=== PATIENT | female | born 1985 | race African-American/Black ===

== ENCOUNTER 2024-09-27 05:41 | Emergency (ER) | payer OTHER, SELFPAY ==
--- NOTE | ~2024-09-27 | XR_ITS ---
Exam: Abdomen 1V HISTORY: replaced, G TUBE REPLACEMENT COMPARISON: None. TECHNIQUE: Supine images of the lower chest and upper abdomen FINDINGS: Percutaneous enteric tube extends into the left upper quadrant. Oral contrast opacifies the gastric cardia. Significant contrast opacified fecal stasis within the rectum (likely from earlier examination) for w hich fecal impaction is suspected. Staple line visualized in the left of midline. Significant levoscoliotic curvature of the lower thoracic and lumbosacral spines. IMPRESSION: Fecal impaction. Oral contrast opacifies the gastric cardia, intraluminal on the submitted image. Reviewed, dictated and finalized at location A. IMPRESSION: Fecal impaction. Oral contrast opacifies the gastric cardia, intraluminal on the submitted image .
[2024-09-27 05:41] VITALS: PULSE 69; RESP 15; TEMP 36.2; O2SAT 95
[2024-09-27 05:45] VITALS: BP 96/62; PULSE 70; RESP 16; O2SAT 94
--- NOTE | 2024-09-27 07:38 | ED_ITS ---
HPI - General Adult General Chief complaint: Unspecified Stated complaint: removed g tube Time Seen by Provider: 09/27/24 07:37 Source: patient and RN notes reviewed Mode of arrival: EMS Limitations: physical limitation and other (baseline) History of Present Illness HPI narrative: Patient presents after removal of the G-tube. She has a history of intellectual disabilities by report. It is unknown when the G-tube was removed, when it was placed, or the size our how long it has been out. Patient states she pulled it out. She states it was placed here at this hospital but we have no record of her previously being here. She does not know what size or how long it has been out or any other details. 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 HEAD: Normocephalic, atraumatic. EYES: Non injected, non icteric ENT: Nares clear, no rhinorrhea or epistaxis. NECK: Supple. CHEST: Speaking in full sentences. No respiratory distress. HEART: Regular rate and rhythm. . ABDOMEN: Soft, nondistended. Small G-tube stoma, some gastric contents leaking, mild skin breakdown but otherwise without significant cellulitis or surrounding induration or purulent discharge. EXTREMITIES: Normal range of motion. No lower extremity edema. Thin. Bony prominences. 4 fingers on R UE. 5 fingers L UE. SKIN: Warm, dry, no rash. NEURO: No focal deficits. Alert and oriented. mildly dysarthric but he did understand. PSYCH: Normal mood and affect. Asking for peanut butter. Course Vital Signs Vital signs: Vital Signs Temperature 97.2 F L 09/27/24 05:41 Pulse Rate 69 09/27/24 05:41 Respiratory Rate 15 09/27/24 05:41 Pulse Oximetry 95 09/27/24 05:41 Oxygen Delivery Room Air 09/27/24 05:41 Temperature 97.2 F L 09/27/24 05:41 Pulse Rate 70 09/27/24 11:01 Respiratory Rate 16 09/27/24 11:01 Blood Pressure 102/66 09/27/24 11:01 Pulse Oximetry 98 09/27/24 11:01 Oxygen Delivery Room Air 09/27/24 05:41 Medical Decision Making MDM Narrative Medical decision making narrative: Patient presents after G-tube removal. Unknown how long has been out, when it was placed, or the size. In the emergency department she is afebrile with vital signs notable for hypotension but MAP 73mmHg. A bit more hypotensive on my bedside examination so 1 L IV fluids ordered. No contact information for a family member on longterm documentation. Patient cannot tell me when / how long ago this was placed. She states it was placed here but no record of patient in EMR. Just placed at local facility on 09/24 per longterm documentation. G-Tube Replacement Procedure Note * Lubricated the tube with lidocaine jelly * Area cleansed * Position the patient reclined in bed to decrease abdominal pressure and relax abdominal wall musculature * 16Fr G tube inserted along the tract * Inflated the balloon with 5 water (amount written in milliliters on the port) * Applied gentle traction to position the balloon against the gastric wall * Adjusted the external bolster against the skin with approximately 1cm of mobility * Confirmed positioning w/ Xray. * X-ray shows significant stool burden with concern for Fecal impaction. Attempted digital disimpaction at bedside however although there is some stool appreciable in the rectal vault it is generally soft. Her blood pressure remains slightly hypotensive but with improved mean arterial pressure on repeat assessment. Again, highly suspect normal for body habitus. Patient PO challenges successfully (loves eating peanut butter). Suppository placed by RN. Advised in [place] Discharge instructions that patient be on a bowel regimen. Discharged back to facility in stable condition. Transportation arranged. Unclear who patient's primary care physician is as long listed on longterm documentation does not appear to be local. Provided re ferral/contact information for 1. Vital Signs Vital Signs: Vital Signs Temperature 97.2 F L 09/27/24 05:41 Pulse Rate 69 09/27/24 05:41 Respiratory Rate 15 09/27/24 05:41 Pulse Oximetry 95 09/27/24 05:41 Oxygen Delivery Room Air 09/27/24 05:41 Temperature 97.2 F L 09/27/24 05:41 Pulse Rate 70 09/27/24 11:01 Respiratory Rate 16 09/27/24 11:01 Blood Pressure 102/66 09/27/24 11:01 Pulse Oximetry 98 09/27/24 11:01 Oxygen Delivery Room Air 09/27/24 05:41 Imaging Data Attestation: I personally reviewed and interpreted this imaging study as follows: My impression: No apparent extravasation of contrast on G2 imaging on my independent interpretation. Patient does have significant stool burden on this study though with apparent fecal impaction. Radiologist's impression: Impressions Abdomen X-Ray 09/27/24 08:16 IMPRESSION: Fecal impaction. Oral contrast opacifies the gastric cardia, intraluminal on the submitted image. Discharge Plan Discharge Clinical Impression: Encounter for gastrojejunal (GJ) tube placement Constipation Qualifiers: Constipation type: unspecified constipation type Qualified Code(s): K59.00 - Constipation, unspecified [facility] Disposition[facility] Condition: Stable Instructions: Antibiotic Form, Constipation (ED), How to Use and Care for Your PEG Tube (DC), High Fiber Diet (ED) Additional Instructions: A 16 Nepali G-tube was replaced and appears to be in good position on x-ray. patient appears very constipated on imaging. attempted digital disimpaction but no firm stool in rectal vault. Patient received bisacodyl rectal supppository and Miralax PO. recommend she be on a bowel regimen that should include stool softeners (fiber, metamucil), MiraLax to supplement, and, while dealing with this degree of constipation, short course of laxative (magnesium citrate). Follow-up with primary care physician or facility medical office technology instructor. If she does not have 1 the name of the doctors listed below. Return to the emergency department with any new or worsening symptoms. Patient Language: Khmer Prescriptions: New psyllium husk [Metamucil] 0.4 gram capsule 0.4 g PO DAILY Qty: 30 0RF polyethylene glycol 3350 [Miralax] 17 gram/dose powder 17 g PO DAILY Qty: 119 0RF magnesium citrate Solution 150 ml PO DAILY PRN (Reason: constipation) Qty: 296 0RF Follow-up/Referrals: Jaylon Lozada [Other] (listed as patient's PCP per longterm documentation) Brien Sears MD [Physician] - (family practice) Stand Alone Forms: Residential Discharge Time of Disposition: 10:20
[2024-09-27 08:15] VITALS: BP 105/68; PULSE 70; RESP 15; O2SAT 100
--- NOTE | 2024-09-27 08:23 | PC.NURSE ---
16Fr [employer] G tube placed by EDP
[2024-09-27] MEDS: SODIUM CHLORIDE 0.9% IV 1,000 ML 999 ML IV CONT (08:26)
[2024-09-27 10:04] VITALS: BP 93/72; PULSE 79; RESP 15; O2SAT 100
[2024-09-27 10:38] VITALS: BP 86/62; PULSE 78; RESP 16; O2SAT 98
[2024-09-27] MEDS: BISACODYL 10 MG SUPPOSITORY RECTAL (10:53)
[2024-09-27] MEDS: polyethylene glycoL 3350 17 GM POWD.PACK PO (10:53)
[2024-09-27 11:01] VITALS: BP 102/66; PULSE 70; RESP 16; O2SAT 98
== END 2024-09-27 11:04 ==
PROVIDERS: Emergency Provider Student in an Organized Health Care Education/Training Program
DX: Z43.1 Encounter for attention to gastrostomy (principal); F79 Unspecified intellectual disabilities; J45.909 Unspecified asthma, uncomplicated; M41.9 Scoliosis, unspecified; Q87.2 Congenital malformation syndromes predominantly involving limbs; K59.00 Constipation, unspecified
CPT/HCPCS: 43762; 99283; A9270; J7030

== ENCOUNTER 2024-09-27 21:19 | Emergency (ER) | payer OTHER, SELFPAY ==
--- NOTE | ~2024-09-27 | XR_ITS ---
Supine and upright views of the abdomen Clinical history: G-tube placement Findings: Percutaneous adjustment appears to be in satisfactory position, with contrast opacifying th e small bowel. No abnormal extravasation of contrast evident. Bowel gas pattern is nonspecific. No ev idence for obstruction or free air. No abnormal mass lesion or calcification is seen. Severe scoliosi s of the thoracolumbar spine noted. Impression: Percutaneous gastrostomy tube in satisfactory position. Reviewed, dictated and finalized at location . Impression: Percutaneous gastrostomy tube in satisfactory position.
[2024-09-27 21:26] VITALS: BP 88/61; PULSE 75; RESP 14; TEMP 36.6; O2SAT 100
--- NOTE | 2024-09-27 23:48 | ED_ITS ---
HPI - General Adult General Chief complaint: Unspecified Stated complaint: LEAKING G TUBE Time Seen by Provider: 09/27/24 23:23 History of Present Illness HPI narrative: 39-year-old female was seen our emergency department earlier today for G-tube replacement presenting with leaking around the G-tube. No other complaints. 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 Head: atraumatic. EYES: EOMI, NOSE: Atraumatic NECK: Trachea midline RESPIRATORY: No increased rate of breathing CARDIOVASCULAR: RRR, ABDOMINAL: G-tube fistula visualized. no cellulitic changes, soft nontender MUSCULOSKELETAl: No obvious deformities NEURO: Alert. Moving 4/4 extremities SKIN:: Warm, dry. Normal color PSYCHIATRIC: Normal affect Course Vital Signs Vital signs: Vital Signs Temperature 97.9 F 09/27/24 21: Pulse Rate 75 09/27/24 21:26 Respiratory Rate 14 09/27/24 21:26 Blood Pressure 88/61 L 09/27/24 21:26 Pulse Oximetry 100 09/27/24 21:26 Oxygen Delivery Room Air 09/27/24 21:26 Temperature 97.9 F 09/27/24 21: Pulse Rate 75 09/27/24 21:26 Respiratory Rate 14 09/27/24 21:26 Blood Pressure 88/61 L 09/27/24 21:26 Pulse Oximetry 100 09/27/24 21:26 Oxygen Delivery Room Air 09/27/24 21:26 Procedures Other Procedure Procedure 1: Other Procedure: G-Tube Replacement Procedure Note * Lubricated the tube with lidocaine jelly * Area cleansed * Position the patient reclined in bed to decrease abdominal pressure and relax abdominal wall musculature * 20Fr G tube inserted along the tract * Inflated the balloon with 20 water (amount written in milliliters on the port) * Applied gentle traction to position the balloon against the gastric wall * Adjusted the external bolster against the skin with approximately 1cm of mobility * Confirmed positioning w/ Xray. Medical Decision Making MDM Narrative Medical decision making narrative: 39-year-old presenting with leaking the G-tube site. G-tube was removed and replaced with a 20Fr. No visible leakage. Confirmed on x-ray. Patient discharged back to long term. Vital Signs Vital Signs: Vital Signs Temperature 97.9 F 09/27/24 21:26 Pulse Rate 75 09/27/24 21:26 Respiratory Rate 14 09/27/24 21:26 Blood Pressure 88/61 L 09/27/24 21:26 Pulse Oximetry 100 09/27/24 21:26 Oxygen Delivery Room Air 09/27/24 21:26 Temperature 97.9 F 09/27/24 21:26 Pulse Rate 75 09/27/24 21:26 Respiratory Rate 14 09/27/24 21:26 Blood Pressure 88/61 L 09/27/24 21:26 Pulse Oximetry 100 09/27/24 21:26 Oxygen Delivery Room Air 09/27/24 21:26 Discharge Plan Discharge Clinical Impression: Gastrostomy tube dysfunction Patient Disposition: Home, Self-Care Condition: Stable Instructions: Antibiotic Form, PEG (Percutaneous Endoscopic Gastrostomy) Tube Insertion (DC) Additional Instructions: Please return if you develop any more difficulty with G-tube. Patient Language: Lithuanian Prescriptions: No Action psyllium husk [Metamucil] 0.4 gram capsule 0.4 g PO DAILY Qty: 30 0RF polyethylene glycol 3350 [Miralax] 17 gram/dose powder 17 g PO DAILY Qty: 119 0RF magnesium citrate Solution 150 ml PO DAILY PRN (Reason: constipation) Qty: 296 0RF Follow-up/Referrals: PHYSICIAN NOT ON STAFF,NONSTAFF [Primary Care Provider] -
--- NOTE | 2024-09-27 23:49 | PC.NURSE ---
SHIRA Bonilla replaced G-tube with 20Fr. VORB for XR placement.
--- NOTE | 2024-09-28 00:46 | PC.NURSE ---
updated [facility]; transport being arranged.
[2024-09-28 04:43] VITALS: BP 86/52; PULSE 69; RESP 15; O2SAT 99
== END 2024-09-28 04:46 ==
LOC: ANHED 09-28 00:12
PROVIDERS: Emergency Provider Emergency Medicine
DX: K94.23 Gastrostomy malfunction (principal); J45.909 Unspecified asthma, uncomplicated; F79 Unspecified intellectual disabilities; M41.9 Scoliosis, unspecified; Q87.2 Congenital malformation syndromes predominantly involving limbs
CPT/HCPCS: 43762; 99283